=== PATIENT | male | born 1965 | race Caucasian/White ===

== ENCOUNTER 2019-04-12 09:11 | Emergency (ER) | payer OTHER ==
[~2019-04-12] VITALS: Ht 172.7 cm; Wt 70.8 kg
[~2019-04-12 09:11] MED LIST: MOTRIN800 MG PO; NPH; SYNTEST D.S TAB1 TAB PO
[2019-04-12] MEDS ORDERED: ALEVE220 MG (09:19)
[2019-04-12] MEDS ORDERED: NORFLEX100MG (09:19)
[2019-04-12] MEDS ORDERED: LEVOTHYROXINE75 MCG (09:20)
[2019-04-12] MEDS ORDERED: CRESTOR5 MG (09:20)
[2019-04-12] MEDS ORDERED: NOVOLOG100 UNIT/1 (09:21)
[2019-04-12] MEDS ORDERED: ALTACE2.5 MG (09:22)
== END 2019-04-12 12:53 | disposition home or self-care (01) ==
LOC: ER 09:11
DX: M54.5 Low back pain (principal)

== ENCOUNTER 2021-09-30 14:44 | Outpatient (CLI) | payer OTHER ==
[~2021-09-30 14:44] MED LIST changes: +ALEVE220 MG; +ALTACE2.5 MG; +CRESTOR5 MG; +LEVOTHYROXINE75 MCG; +NORFLEX100MG; +NOVOLOG100 UNIT/1
== END 2021-09-30 14:51 | disposition home or self-care (01) ==
LOC: RAD 14:44
PROVIDERS: ATTEND Internal Medicine Rheumatology
DX: M19.041 Primary osteoarthritis, right hand (principal); M19.042 Primary osteoarthritis, left hand